=== PATIENT | male | born 1955 | race Caucasian/White ===

== ENCOUNTER 2022-01-03 10:28 | Inpatient (IN) ==
[2022-01-03 11:36] LABS: Basophils % 0.6 %; Eosinophils # 0.1 K/mcL (0.0-0.6); Eosinophils % 1.7 %; Hematocrit 43.8 % (37.5-50.1); Hemoglobin 14.7 g/dL (12.9-16.9); Immature Granulocytes % 0.3 % (0-4); Lymphocytes # 1.1 K/mcL (0.6-4.6); Lymphocytes % 16.2 %; Mean Corpuscular HGB Conc 33.6 g/dL (31.6-35.5); Mean Corpuscular Hemoglobin 32.6 pg (28.0-33.3); Mean Corpuscular Volume 97.1 fL (83.0-100.0); Mean Platelet Volume 9.9 fL (9.4-12.4); Monocytes # 0.5 K/mcL (0.0-1.3); Monocytes % 6.6 %; Neutrophils # 5.2 K/mcL (1.6-8.9); Platelet Count 260 K/mcL (140-400); Red Blood Count 4.51 M/mcL (4.19-5.50); Red Cell Distribution Width 12.8 % (11.5-14.5); Segmented Neutrophils % 74.6 %; White Blood Count 6.9 K/mcL (4.3-11.1)
[2022-01-03 11:57] LABS: BUN/Creatinine Ratio 18 (6-26); Blood Urea Nitrogen 20 mg/dL (8-23); Calcium 9.5 mg/dL (8.6-10.3); Carbon Dioxide 25 mEq/L (23-29); Chloride 106 mEq/L (98-107); Glucose 99 mg/dL (70-105); Osmolality,Calculated 285 (280-300); Potassium 4.2 mEq/L (3.5-5.1); Sodium 136 mEq/L (136-145); Troponin I < 0.03 ng/mL (< 0.04); eGFR For African Americans > 60 (> 60); eGFR For Non-African Americans > 60 (> 60)
[2022-01-03] MEDS: Nitroglycerin 0.4 MG TAB.SUBL SL SCH ×2 (13:29→16:41)
[2022-01-03] MEDS ORDERED: Aspirin 325 MG TABLET PO STA (13:47)
[2022-01-03] MEDS ORDERED: 0.9 % Sodium Chloride 500 ML IVC ONE (13:51)
[2022-01-03] MEDS ORDERED: Aspirin 81 MG TAB.CHEW PO ONE (14:01)
[2022-01-03] MEDS ORDERED: *HR* FentaNYL (PF) 100 MCG/2 ML VIAL IVP ONE (14:09)
[2022-01-03] MEDS ORDERED: Ondansetron ODT 4 MG TAB.RAPDIS SL PRN (14:19)
[2022-01-03] MEDS ORDERED: Mag Hydrox/Al Hydrox/Simeth 30 ML UDC PO PRN (14:19)
[2022-01-03] MEDS ORDERED: Naloxone 0.4 MG/ML INJ IVP PRN (14:19)
[2022-01-03] MEDS ORDERED: Melatonin 3 MG TABLET PO PRN (14:19)
[2022-01-03] MEDS ORDERED: MOM Conc 10 ML UD.LIQ PO PRN (14:19)
[2022-01-03] MEDS ORDERED: Perflutren Lipid Microsphere 1.3 ML in 0.9 % Sodium Chloride 8.7 ML IVP PRN (14:23)
[2022-01-03] MEDS: *HR* Ticagrelor 90 MG TABLET PO SCH (20:03)
[2022-01-03] MEDS: carvediloL 6.25 MG TABLET PO SCH (20:03)
[2022-01-04 05:48] LABS: Hematocrit 40.8 % (37.5-50.1); Hemoglobin 13.7 g/dL (12.9-16.9); Mean Corpuscular HGB Conc 33.6 g/dL (31.6-35.5); Mean Corpuscular Hemoglobin 32.8 pg (28.0-33.3); Mean Corpuscular Volume 97.6 fL (83.0-100.0); Mean Platelet Volume 9.7 fL (9.4-12.4); Platelet Count 216 K/mcL (140-400); Red Blood Count 4.18 M/mcL (4.19-5.50); Red Cell Distribution Width 12.9 % (11.5-14.5); White Blood Count 8.3 K/mcL (4.3-11.1)
[2022-01-04 06:05] LABS: BUN/Creatinine Ratio 15 (6-26); Blood Urea Nitrogen 20 mg/dL (8-23); Calcium 9.1 mg/dL (8.6-10.3); Carbon Dioxide 26 mEq/L (23-29); Chloride 106 mEq/L (98-107); Glucose 103 mg/dL (70-105); Osmolality,Calculated 289 (280-300); Potassium 4.5 mEq/L (3.5-5.1); Sodium 138 mEq/L (136-145); eGFR For African Americans > 60 (> 60); eGFR For Non-African Americans 54 (> 60)
[2022-01-04] MEDS: carvediloL 6.25 MG TABLET PO SCH ×2 (06:55→16:59)
[2022-01-04] MEDS: *HR* Ticagrelor 90 MG TABLET PO SCH ×2 (07:53→20:31)
[2022-01-04] MEDS: Aspirin Enteric Coated 81 MG Tablet PO SCH (07:53)
[2022-01-04] MEDS: lisinopriL 10 MG TABLET PO SCH (07:53)
[2022-01-04] MEDS ORDERED: Nitroglycerin 1,000 MCG/5 ML VIAL IV ONE (09:05)
[2022-01-04] MEDS ORDERED: 0.9 % Sodium Chloride 2,000 ML ONE (09:05)
[2022-01-04] MEDS ORDERED: *HR* Heparin 10,000 UNIT/10 ML VIAL ONE (09:05)
[2022-01-04] MEDS ORDERED: Heparin 1,000 UNITS/500 mL 500 ML ONE (09:05)
[2022-01-04] MEDS ORDERED: Iopamidol - 370 200 ML INFUS..BTL ONE ×2 (09:05→10:31)
[2022-01-04] MEDS ORDERED: *HR* FentaNYL (PF) 100 MCG/2 ML VIAL ONE (09:26)
[2022-01-04] MEDS ORDERED: *HR* Midazolam HCl 2 MG/2 ML VIAL ONE (09:26)
[2022-01-04] MEDS ORDERED: 0.9 % Sodium Chloride 1,000 ML IVC SCH (10:00)
[2022-01-04] MEDS: 0.9 % Sodium Chloride 1,000 ML IVC SCH ×2 (11:35→20:37)
[2022-01-04] MEDS: Isosorbide MONOnitrate (24 HR) 30 MG TAB.ER.24H PO SCH (16:58)
[2022-01-04] MEDS ORDERED: carvediloL 6.25 MG TABLET PO SCH (17:00)
[2022-01-05] MEDS: 0.9 % Sodium Chloride 1,000 ML IVC SCH ×2 (06:52→19:28)
[2022-01-05 08:31] LABS: Hemoglobin 11.8 g/dL (12.9-16.9)
[2022-01-05] MEDS: carvediloL 6.25 MG TABLET PO SCH ×2 (08:34→16:44)
[2022-01-05] MEDS: Aspirin Enteric Coated 81 MG Tablet PO SCH (08:34)
[2022-01-05] MEDS: lisinopriL 10 MG TABLET PO SCH (08:34)
[2022-01-05] MEDS: Isosorbide MONOnitrate (24 HR) 30 MG TAB.ER.24H PO SCH (08:34)
[2022-01-05] MEDS: *HR* Ticagrelor 90 MG TABLET PO SCH ×2 (08:35→21:18)
[2022-01-05 08:43] LABS: BUN/Creatinine Ratio 15 (6-26); Blood Urea Nitrogen 18 mg/dL (8-23); eGFR For African Americans > 60 (> 60); eGFR For Non-African Americans > 60 (> 60)
[2022-01-05] MEDS ORDERED: 0.9 % Sodium Chloride 500 ML ONE (12:20)
[2022-01-05] MEDS ORDERED: 0.9 % Sodium Chloride 1,000 ML ONE (12:20)
[2022-01-05] MEDS ORDERED: *HR* Midazolam HCl 2 MG/2 ML VIAL ONE ×2 (13:07→13:26)
[2022-01-05] MEDS ORDERED: *HR* FentaNYL (PF) 100 MCG/2 ML VIAL ONE (13:07)
[2022-01-05] MEDS ORDERED: CeFAZolin 2 GM/120 ML BAG IVPB ONE (21:00)
[2022-01-06] MEDS: 0.9 % Sodium Chloride 1,000 ML IVC SCH (05:34)
[2022-01-06 07:00] VITALS: O2SAT 96
[2022-01-06] MEDS: lisinopriL 10 MG TABLET PO SCH (08:55)
[2022-01-06] MEDS: *HR* Ticagrelor 90 MG TABLET PO SCH (08:55)
[2022-01-06] MEDS: carvediloL 6.25 MG TABLET PO SCH (08:55)
[2022-01-06] MEDS: Aspirin Enteric Coated 81 MG Tablet PO SCH (08:56)
[2022-01-06] MEDS: Isosorbide MONOnitrate (24 HR) 30 MG TAB.ER.24H PO SCH (08:56)
[2022-01-06 09:59] VITALS: BP 126/67; PULSE 70; TEMP 97.5
== END 2022-01-06 14:11 | disposition home or self-care (01) | DRG 243 ==
LOC: 3BNU 10:28 → EMEROOARM 10:28 → SUATTDRO 15:14 → 3BNU 16:41
PROVIDERS: ADMIT Internal Medicine; ATTEND Nurse Practitioner